=== PATIENT | male | born 1965 | race African-American/Black ===

== ENCOUNTER 2020-10-20 13:22 | Emergency (ER) | payer SELFPAY ==
[~2020-10-20] VITALS: Ht 185.4 cm; Wt 86.0 kg
--- NOTE | 2020-10-20 14:21 | ED.ADGEN ---
Past Medical History Past Medical History: Hypertension Past Surgical History: Other Additional Past Surgical Histo: BLOOD CLOT REMOVAL Smoking Status: Never Smoker Alcohol Use: Heavy General Adult EDM: Chief Complaint: SEIZURE HPI: HPI: Patient is a 54 year old AA male who presents emergency department via EMS after a reported seizure while working at [employer] Patient adamantly denies any history of seizures. He states that when he came to he knew who he was he just did not know what happened. According to EMS coworker reported that the patient has a history of seizures, his last one was three years ago, and the patient stopped taking his medication a month ago. Patient states that he does not know where that information came from but he has never had a seizure and he does not take any medications for it. He denies any chest pain, palpitations, shortness of breath, nausea, vomiting, diarrhea, abdominal pain, neck pain, back pain, headache, vision changes, numbness, tingling, or weakness currently and prior to passing out. Patient is not sure why he passed out. He currently complains of pain to the back of his head with swelling where he hit it when he fell. Patient currently rates his pain a 5 out of 10 on pain scale, he denies any alleviating factors the pain is worse if the area is touched. Review of Systems: Review of Systems: Complete ROS is negative unless otherwise noted in HPI. Current Medications: Current Medications Medications (Trade) Dose Ordered Sig/Darryl Start Time Stop Time Status Last Admin Dose Admin Sodium Chloride 1,000 ml @ 1,000 mls/hr 1X ONCE 10/20/20 16:30 10/20/20 17:29 DC 10/20/20 16:40 1,000 MLS/HR Allergies: Allergies: Allergies Coded Allergies Type Severity Reaction Last Updated Verified No Known Drug Allergies 10/20/20 No Physical Exam: PE: See Above Constitutional: Well developed, well nourished, no acute distress, non-toxic appearance. [] HENT: Normocephalic, bilateral external ears normal, normal appearance of pos terior pharynx, nose normal; swelling to posterior scalp, no laceration or abrasion,. [] Eyes: PERRLA, EOMI, conjunctiva normal, no discharge. [] Neck: Normal range of motion, no stridor. [] Cardiovascular:Heart rate regular rhythm Lungs & Thorax: Respirations even and unlabored, no retractions, no respiratory distress Abdomen: soft, no tenderness Back: Nontender Skin: Warm, dry, no erythema, no rash. [] Extremities: No cyanosis, ROM intact, no edema. [] Neurologic: Alert and oriented X 3, normal motor, normal sensory, no focal deficits noted. [] Psychologic: Affect normal, judgement normal, mood normal. [] Current Patient Data: Labs: Laboratory Tests Test 10/20/20 14:00 10/20/20 14:37 White Blood Count 2.8 x10^3/uL (4.0-11.0) L Red Blood Count 4.15 x10^6/uL (4.30-5.70) L Hemoglobin 13.7 g/dL (13.0-17.5) Hematocrit 40.3 % (39.0-53.0) Mean Corpuscular Volume 97 fL (79-100) Mean Corpuscular Hemoglobin 33 pg (25-35) Mean Corpuscular Hemoglobin Concent 34 g/dL (31-37) Red Cell Distribution Width 13.3 % (11.5-14.5) Platelet Count 160 x10^3/uL (140-400) Neutrophils (%) (Auto) 64 % (31-73) Lymphocytes (%) (Auto) 24 % (24-48) Monocytes (%) (Auto) 9 % (0-9) Eosinophils (%) (Auto) 2 % (0-3) Basophils (%) (Auto) 1 % (0-3) Neutrophils # (Auto) 1.8 x10^3/uL (1.8-7.7) Lymphocytes # (Auto) 0.7 x10^3/uL (1.0-4.8) L Monocytes # (Auto) 0.3 x10^3/uL (0.0-1.1) Eosinophils # (Auto) 0.0 x10^3/uL (0.0-0.7) Basophils # (Auto) 0.0 x10^3/uL (0.0-0.2) Sodium Level 139 mmol/L (136-145) Potassium Level 3.7 mmol/L (3.5-5.1) Chloride Level 100 mmol/L (98-107) Carbon Dioxide Level 27 mmol/L (21-32) Anion Gap 12 (6-14) Blood Urea Nitrogen 19 mg/dL (8-26) Creatinine 1.5 mg/dL (0.7-1.3) H Estimated GFR (Cockcroft-Gault) 49.1 BUN/Creatinine Ratio 13 (6-20) Glucose Level 133 mg/dL (70-99) H Calcium Level 9.6 mg/dL (8.5-10.1) Magnesium Level 2.1 mg/dL (1.8-2.4) Total Bilirubin 0.9 mg/dL (0.2-1.0) Aspartate Amino Transferase (AST) 88 U/L (15-37) H Alanine Aminotransferase (ALT) 88 U/L (16-63) H Alkaline Phosphatase 69 U/L (46-116) Creatine Kinase 979 U/L (39-308) H Creatine Kinase MB (Mass) 8.5 ng/mL (0.0-3.6) H Creatine Kinase MB Relative Index 0.9 % (0-4) Troponin I Quantitative < 0.017 ng/mL (0.000-0.055) Total Protein 8.7 g/dL (6.4-8.2) H Albumin 4.0 g/dL (3.4-5.0) Albumin/Globulin Ratio 0.9 (1.0-1.7) L Urine Opiates Screen Neg (NEG) Urine Methadone Screen Neg (NEG) Urine Barbiturates Neg (NEG) Urine Phencyclidine Screen Neg (NEG) Urine Amphetamine/Methamphetamine Neg (NEG) Urine Benzodiazepines Screen Neg (NEG) Urine Cocaine Screen Neg (NEG) Urine Cannabinoids Screen Neg (NEG) Ethyl Alcohol Level < 10 mg/dL (0-10) Urine Ethyl Alcohol Neg (NEG) Urine Collection Type Unknown Urine Color Joie Urine Clarity Clear Urine pH 5.5 (<5.0-8.0) Urine Specific [place] >=1.030 (1.000-1.030) Urine Protein 100 mg/dL (NEG-TRACE) Urine Glucose (UA) >=1000 mg/dL (NEG) Urine Ketones (Stick) Trace mg/dL (NEG) Urine Blood Moderate (NEG) Urine Nitrite Negative (NEG) Urine Bilirubin Negative (NEG) Urine Urobilinogen Dipstick 0.2 mg/dL (0.2 mg/dL) Urine Leukocyte Esterase Negative (NEG) Urine RBC Occ /HPF (0-2) Urine WBC Occ /HPF (0-4) Urine Bacteria 0 /HPF (0-FEW) Urine Hyaline Casts Moderate /HPF Urine Mucus Marked /LPF Laboratory Tests 10/20/20 14:00 Laboratory Tests 10/20/20 14:00 Vital Signs: Vital Signs Date Time Temp Pulse Resp B/P (MAP) Pulse Ox O2 Delivery O2 Flow Rate FiO2 10/20/20 15:40 87 99 10/20/20 13:59 18 10/20/20 13:36 98.0 154/102 (119) Room Air 98.0 EKG: EK-sinus rhythm with T abnormality in inferior lateral leads, rate 84, no STEMI, read by Dr. Durán[] Heart Score: C/O Chest Pain: No Risk Scores: Score 0 - 3: 2.5% MACE over next 6 weeks - Discharge Home Score 4 - 6: 20.3% MACE over next 6 weeks - Admit for Clinical Observation Score 7 - 10: 72.7% MACE over next 6 weeks - Early Invasive Strategies Radiology/Procedures: Radiology/Procedures: PROCEDURE: CT HEAD WO CONTRAST CT HEAD/BRAIN WO History: Reason: seizure / Spl. Instructions: / History: Comparison: None. Technique: Noncontrast CT imaging was performed of the head. Exposure: One or more of the following individualized dose reduction techniques were utilized for this examination: 1. Automated exposure control 2. Adjustment of the mA and/or kV according to patient size 3. Use of iterative reconstruction technique. Findings: No intracranial hemorrhage. No mass effect. No hydrocephalus. Mild foci of decreased attenuation within the hemispheric white matter, most often due to chronic microvascular ischemia. Left posterior scalp soft tissue swelling. Imaged orbits are unremarkable. Imaged paranasal sinuses and mastoid air cells are clear. No acute calvarial fracture. Impression: 1. No acute intracranial abnormality. 2. Left posterior scalp soft tissue swelling. Electronically signed by: Tereso Guerra DO (10/20/2020 2:32 PM) [id number] [] Course & Med Decision Making: Course & Med Decision Making Pertinent Labs and Imaging studies reviewed. (See chart for details) [][] Patients Care and treatment plan provided by ER Nurse Practitioner. I was available for consult. Patient's chart reviewed. Sal Disclaimer: Sal Disclaimer: This electronic medical record was generated, in whole or in part, using a voice recognition dictation system. Departure Departure Impression: Primary Impression: Episode of syncope Additional Impression: Dehydration Disposition: 01 HOME / SELF CARE / HOMELESS Condition: STABLE Patient Instructions: Dehydration, Adult, [id number], Syncope, [id number] Additional Instructions: Home to rest. Limit heat exposure. Increase clear fluids, follow-up with your primary 1 to 2 days, return to the ER symptoms worsen or fever develops. Problem Qualifiers Primary Impression: Episode of syncope Syncope type: unspecified Qualified Codes: R55 - Syncope and collapse MOHIT MORRELL APRN Oct 20, 2020 14:21 ADORE DURÁN DO Oct 24, 2020 18:26
--- NOTE | 2020-10-20 14:34 | RAD ---
CT HEAD/BRAIN WO History: Reason: seizure / Spl. Instructions: / History: Comparison: None. Technique: Noncontrast CT imaging was performed of the head. Exposure: One or more of the following individualized dose reduction techniques were utilized for thi s examination: 1. Automated exposure control 2. Adjustment of the mA and/or kV according to patient size 3. Use of iterative reconstruction technique. Findings: No intracranial hemorrhage. No mass effect. No hydrocephalus. Mild foci of decreased attenuation within the hemispheric white matter, most often due to chronic angelina rovascular ischemia. Left posterior scalp soft tissue swelling. Imaged orbits are unremarkable. Imaged paranasal sinuses and mastoid air cells are clear. No acute ca lvarial fracture. Impression: 1. No acute intracranial abnormality. 2. Left posterior scalp soft tissue swelling. Electronically signed by: Tereso Guerra DO (10/20/2020 2:32 PM) [id number]
[2020-10-20 14:44] LABS: BASO % 1 % (0-3); EOS % 2 % (0-3); HEMATOCRIT 40.3 % (39.0-53.0); HEMOGLOBIN 13.7 g/dL (13.0-17.5); LYMPH # 0.7 x10^3/uL (1.0-4.8); LYMPH % 24 % (24-48); MEAN CORPUSCULAR HEMOGLOBIN 33 pg (25-35); MEAN CORPUSCULAR HGB CONC 34 g/dL (31-37); MEAN CORPUSCULAR VOLUME 97 fL (79-100); MONO # 0.3 x10^3/uL (0.0-1.1); MONO % 9 % (0-9); NEUT # 1.8 x10^3/uL (1.8-7.7); NEUT % 64 % (31-73); PLATELET COUNT 160 x10^3/uL (140-400); RED BLOOD COUNT 4.15 x10^6/uL (4.30-5.70); RED CELL DISTRIBUTION WIDTH 13.3 % (11.5-14.5); WHITE BLOOD COUNT 2.8 x10^3/uL (4.0-11.0)
[2020-10-20 15:00] LABS: BILIRUBIN,URINE NEGATIVE (NEG); CLARITY,URINE CLEAR; COLOR,URINE AMBER; NITRITE,URINE NEGATIVE (NEG); PH,URINE 5.5 (<5.0-8.0); PROTEIN,URINE 100 mg/dL (NEG-TRACE); UROBILINOGEN,URINE 0.2 mg/dL (0.2 mg/dL)
[2020-10-20 15:00] LABS: CALCIUM 9.6 mg/dL (8.5-10.1); CREATININE 1.5 mg/dL (0.7-1.3); GFR 49.1; POTASSIUM 3.7 mmol/L (3.5-5.1)
[2020-10-20 15:04] LABS: ALBUMIN/GLOBULIN RATIO 0.9 (1.0-1.7); MAGNESIUM 2.1 mg/dL (1.8-2.4); TOTAL BILIRUBIN 0.9 mg/dL (0.2-1.0); TOTAL PROTEIN 8.7 g/dL (6.4-8.2)
[2020-10-20 15:05] LABS: BACTERIA,URINE 0 /HPF (0-FEW); HYALINE CASTS, URINE MODERATE /HPF; WBC,URINE OCC /HPF (0-4)
[2020-10-20 15:06] LABS: RBC,URINE OCC /HPF (0-2)
[2020-10-20 15:11] LABS: BARBITURATES NEG (NEG); BENZODIAZEPINES NEG (NEG); CANNABINOIDS NEG (NEG); COCAINE NEG (NEG); METHADONE NEG (NEG); OPIATES NEG (NEG); PHENCYCLIDINE NEG (NEG)
[2020-10-20 15:14] LABS: AMPHETAMINE/METHAMPHETAMINE NEG (NEG)
[2020-10-20 15:40] VITALS: BP 155/94
[2020-10-20] MEDS ORDERED: IV NORMAL SALINE 1000ML BAG 1,000 ML IV ONE ×2 (16:00→16:30)
== END 2020-10-20 17:10 | disposition home or self-care (01) ==
LOC: ER 13:22
DX: R56.9 Unspecified convulsions (principal); E86.0 Dehydration; I10 Essential (primary) hypertension
CPT/HCPCS: 36415; 70450; 80053; 80307; 81001; 82553; 83735; 84484; 85025; 96360; 96361; 99285; G0480; J7030